=== PATIENT | male | born 1940 | race Caucasian/White ===

== ENCOUNTER 2017-07-28 02:27 | Inpatient (IN) | payer OTHER, MEDICARE ==
[~2017-07-28] VITALS: Ht 180.3 cm; Wt 105.7 kg
[~2017-07-28 02:27] MED LIST: CLARITIN10 M1 PO; CRESTOR40 M2 PO; LOVAZA1 G1 PO; MULTI-VITAMIN1 EACH; SAW PALMETTO160 M2; TYLENOL EXTRA500 M2 PO; VITAMIN D2000 UNIT PO
[2017-07-28] MEDS ORDERED: LOVAZA1 G1 PO (09:32)
--- NOTE | 2017-07-28 11:24 | Admission Core Measures ---
Acute Coronary Syndrome (CM) ACS Core Measures Acute Coronary Syndrome Diagnosis No Congestive Heart Failure (NEW) CHF Core Measures Congestive Heart Failure Diagnosis No Cerebrovascular Accident (NEW) CVA Core Measures CVA/TIA Diagnosis No Venous Thromboembolism VTE Core Libby (View Protocol) VTE Risk Factors Surgery No Mechanical VTE Prophylaxis d/t N/A MechProphylax Ordered No VTE Pharm Prophylaxis d/t NA PharmProphylax ordered Problem List As ranked by this Provider includes Assessment & Plan 1. Unilateral primary osteoarthritis, right knee HOME MEDS Home Med List Acetaminophen (Tylenol Extra Strength) 500 MG TABLET 2 TAB PO Q6 pain ( Reported) Aspirin (Ecotrin*) 81 MG TABLET.DR 1 TAB PO DAILY heart (Reported) Cholecalciferol (Vitamin D3) (Vitamin D) 2,000 UNIT CAPSULE 1 CAP PO DAILY supplement (Reported) Loratadine (Claritin) 10 MG TABLET 1 TAB PO DAILY anithistamine (Reported) Wayne-3 Acid Ethyl Esters (Lovaza) 1 GRAM CAPSULE 2 CAP PO BID bp (Reported) Wayne-3 Acid Ethyl Esters (Lovaza) 1 GRAM CAPSULE 1 CAP PO DAILY HEART HEALTH (Reported) Rosuvastatin Calcium (Crestor) 40 MG TABLET 1 TAB PO DAILY cholesterol ( Reported)
--- NOTE | 2017-07-28 11:35 | Surg Short-stay <48hrs Dis Sum ---
Visit Information Visit Dates Admission Date: 07/28/17 Discharge Date: 07/30/17 Surgical Short Stay DC Summary Admission Diagnosis: Primary osteoarthritis, right knee Final Diagnosis: Primary osteoarthritis, right knee s/p R TKR Procedure(s): Right total knee replacement Summary/Significant Findings: Patient was admitted to the hospital for an elective total joint replacement. Procedure was tolerated well and patient was transferred to a general surgical floor. Diet was advanced and tolerated. Physical therapy performed evaluation and treatment. At time of hospital discharge, vital signs were stable, neurovascular status was intact, and pain was controlled with the use of oral pain medications. Condition at Discharge: Stable Discharge Disposition: home health services Discharge instructions provided to patient/family: Yes Post discharge follow-up plan: Follow up with Dr. Álvarez in 6 weeks from date of surgery. Please call his office to schedule/confirm this appointment.
[2017-07-28] MEDS ORDERED: DILAUDID2 M1 PO (11:37)
[2017-07-28] MEDS ORDERED: ASPIRIN325 M2 PO (11:37)
[2017-07-28] MEDS ORDERED: OMEPRAZOLE20 M2 PO (11:37)
[2017-07-28] MEDS ORDERED: COLACE100 M1 PO (11:37)
[2017-07-28] MEDS ORDERED: MIRALAX17 G1 PO (11:37)
--- NOTE | 2017-07-28 11:40 | Patient Discharge Instructions ---
Discharge Instructions General Discharge Information You were seen/treated for: Primary osteoarthritis, right knee You had these procedures: Right total knee replacement Watch for these problems: Increasing pain despite the use of pain medication Increasing redness, warmth or swelling Drainage of any type from incision Inability to bear weight on operative leg Persistent nausea and vomiting Fever greater than 101.5 degrees Do not soak the wound: Yes No bath, but you may shower: Yes Other wound care: Please keep wound clean and dry. No ointments or lotions of any type on or near incision. Your dressing will be changed by your nurse on the second day after your surgery. Daily dry dressing changes are recommended each day thereafter. Do not soak your wound- no tub baths/swimming. You may shower 48hr after surgery. Special Instructions: Aspirin: You are taking this medication to help prevent blood clot formation. Please take with food to protect your stomach lining. Please take as directed. Constipation: Pain medication can cause constipation. It is recommended that you take Colace and Miralax each day. Discontinue this medication if you develop loose stool or diarrhea. If you wish to continue this medication, it is available over the counter. If you are unable to move your bowels or unable to pass gas and are developing bloating, nausea, or vomiting as a result, please contact your doctor. Diet Recommended Diet: Heart Healthy Activity Full Activity/No Limits: No Activity Limited to: Weight bear as tolerated Other activity limits: Use rolling walker as needed Acute Coronary Syndrome Inclusion Criteria At DC or during hospital stay patient has or had the following: ACS DIAGNOSIS No Discharge Core Measures Meds if any: Prescribed or Continued at Discharge Meds if any: NOT Prescribed or Continued at Discharge Congestive Heart Failure Inclusion Criteria At DC or during hospital stay patient has or had the following: CHF DIAGNOSIS No Discharge Core Measures Meds if any: Prescribed or Continued at Discharge Meds if any: NOT Prescribed or Continued at Discharge Cerebrovascular accident Inclusion Criteria At DC or during hospital stay patient has or had the following: CVA/TIA Diagnosis No Discharge Core Measures Meds if any: Prescribed or Continued at Discharge Meds if any: NOT Prescribed or Continued at Discharge Venous thromboembolism Inclusion Criteria VTE Diagnosis No VTE Type NONE VTE Confirmed by (Test) NONE Discharge Core Measures - Per Current guidelines, there needs to be overlap - treatment for the first 5 days of Warfarin therapy. - If discharged on Warfarin prior to 5 days of - overlap therapy, the patient will need to be - assessed for post discharge needs including - *Post discharge parental anticoagulation - *Warfarin and/or parental anticoagulation education - *Follow up date to check INR post discharge At least 5 days overlap therapy as Inpatient No Meds if any: Prescribed or Continued at Discharge Note: Overlap Therapy is Warfarin and Anticoagulant Meds if any: NOT Prescribed or Continued at Discharge
--- NOTE | 2017-07-28 15:07 | Operative Report ---
Operative/Inv Procedure Report Surgery Date: 07/28/17 Name of Procedure: Right total knee replacement Pre-Operative Diagnosis: Primary right knee DJD Post-Operative Diagnosis: Same Estimated Blood Loss: 50ml to 100ml Surgeon/Research And Development Chemist: Henri GODDARD,Rod Norman Anesthesia: block Operative/Procedure Note Note: Description of Procedure: The patient was taken to the operating room and positively identified. After induction of spinal anesthesia and administration of appropriate pre-operative antibiotics, the patient was positioned supine on the operating room table and all bony prominences were well padded. A well-padded pneumatic tourniquet was placed on the right upper thigh. After performing a surgical timeout, the right lower extremity was prepped and draped in the usual sterile fashion. After exsanguination with Esmarch the tourniquet was inflated to 250mm of mercury. A standard medial parapatellar approach was made to the knee. This was carried down through skin and subcutaneous tissue to the level of the fascia. Meticulous hemostasis was maintained with Bovie electrocautery. The extensor mechanism and patellar retinaculum were opened sharply and the patella was everted. The infrapatellar fat was resected in order to improve exposure. Osteophytes were trimmed from the patella and femoral condyles and the patella was re-everted and tucked laterally. A medial release was performed and the cruciate ligaments were resected. The tibia was then subluxed anteriorly. Utilizing the appropriate extra-medullary guide, the proximal tibia was trimmed perpendicular to the long axis of the tibial shaft. Attention was then turned to the femur. After opening the medullary canal, the distal femoral cut was made in 6 degrees of valgus utilizing the appropriate intra-medullary guide. The extension gap was checked and found to be appropriate. The femur was then sized and the remainder of the femoral cuts were made with a size 6 4-in-1 femoral cutting guide. The flexion gap was checked and found to be symmetric and appropriate. The knee was then trialed with a size 6 femoral component, a size 6 tibial component and a size 13 mm TS polyethylene insert. The patella was trimmed to accept an A 38 patella. This yielded excellent range of motion, stability and patellar tracking. All trial components were removed and the knee was copiously irrigated with sterile saline. All components were cemented into place with Deonna Simplex cement. All the components were of the Deonna Triathlon knee system of the above stated sizes. The knee was again irrigated after cementation. The extensor mechanism and patellar retinaculum were repaired using interrupted #1 vicryl suture. The skin was re-approximated with 2-0 vicryl and closed with azra. A sterile dressing was applied, the tourniquet was deflated, the patient was awakened and taken to the recovery room in satisfactory condition.
--- NOTE | 2017-07-28 16:06 | PN- Student ---
Ar Elizabeth 07/28/17 1604: Subjective Subjective: Tai is a 76yo M post op day 0 s/p R total knee arthroplasty r/t osteoarthritis. He states he has no pain at this time and expresses increased appetite. IVF inplace. PT does not have burr at this time. Denies flatus or BM. No questions or concerns at this time. Denies: H/A, vision changes, SOB, chest pain, abd pain, N/V/D, hematuria/dysuria , paresthesias or syncope. Objective Objective: GENERAL: Pt sitting upright in bed in NAD. A+Ox4, pleasant affect. O2 via nasal cannula in place. RESP: Good respiratory effort, CTAB. CARDIO: RRR, no MRG, S1/S1. ABD: Soft, NTND, tympanic, no bowel sounds audible. MUSC: Right leg in jackie wrap with ice pack on top. Dresing is clean dry and inplace. Pt able to move toes and ankles full ROM. Pedal pulses palpable bilaterally. Cap refill <2 seconds. NEURO: Sensation intact thoughout. Assessment/Plan Assessment: Tai is a 76yo M POD-0, s/p R total knee arthroscopy r/t OA. He is recovering well from his procedure and does not have any pain at this time, he states 'I want to eat and I want to go home.' Plan: Continue pain medications as ordered. Order regular diet. No weight bearing exercises Follow up with Dr. Wade outpatient. D/C this afternoon if patient remains stable. - D/C with pain medication Rx. Loren Urbina 07/28/17 9162: Assessment/Plan Plan: AGREE WITH ABOVE PA-S NOTE advance diet as tolerated pain medication as ordered PT eval. wbat asa bid - dvt ppx dressing change and removal of on-q POD#2 tamika-operative ancef x 2 doses f/u am labs d/c planning for home 2-3 days will d/w
[2017-07-28 20:00] VITALS: BP 150/64
[2017-07-28 23:02] VITALS: BP 128/66
[2017-07-29 01:54] VITALS: BP 112/64
[2017-07-29 06:20] VITALS: BP 136/64
--- NOTE | 2017-07-29 07:06 | PN- Student ---
Ar Elizabeth 07/29/17 0654: Subjective Subjective: Tai is a 76yo C male post op day 1 s/p R total knee arthroscopy r/t OA. Pt currently denies any pain but is complaining of generlized pruritus. He says he is 'itchy all over.' No rash visible, no respiratory changes. Patient has been tolerating regular diet and admits to + flatus, but denies BM. Patient states his knee feels 'great' and begins to flex and extend knee with full range of motion-- patient asked not to perform such great movements until physical therapy sees him this morning- pt understands and is complaint although he admits he has been doing this throughout the night, and says 'I've been putting the sheet under my foot, then I pull the sheet really high up so I can stretch out my knee.'- Again, patient was advised not to perform these manuevers without physical therapy consult. PT denies: H/A, vision changes, SOB, chest pain, N/V/D, paresthesias or syncope. Objective Objective: GENERAL: Pt sitting upright in bed comfortably, in NAD. A+Ox4, pleasant affect. PT hard of hearing. RESP: Good respiratory effort, CTAB. CARDIO: RRR, no M/R/G, S1,S2 audible. ABD: Soft, NTND, loud active bowel sounds audible in all 4 quadrants. MUSC: Right knee has dressing clean dry and intact, wrapped with LARISA bandage. Compression devices on lower legs bilaterally. Nontender/nonedematous. Pt able to move knee, ankle and toes without difficulty. Pedal pulses intact bilaterally , cap refill < 2 sec. NEURO: Sensation intact throughout. Assessment/Plan Assessment: Tai is a 76yo C male post op day 1 s/p R knee total arthroscopy r/t OA. Pt is in no acute distress but is complaining of pruritus, likely 2/2 opioid pain medications (only known drug allergy is to minocycline). Patient appears to be recovering well from the procedure and has no questions or concerns at this time. Plan: Continue regular diet. Continue pain medications as ordered. Continue aspirin 325mg for DVT prophylaxis. Order benadryl for pruritus --- if not effective: consider switching pain medications to torodol Physical therapy consult- encourage weight bearing/ambulation as tolerated. Luberti PA,Ben 07/29/17 0752: Resident Review Statement Resident Statement: examined this patient, amended to note Other Findings: Patient is comfortable, has no pain. Has some itching that he believes associated with anesthesia, relieved with Benadryl. Also some mild dyspepsia which is common for him, given Prilosec with near complete relief Exam: Well-developed well-nourished no apparent distress. HEENT: Atraumatic, extraocular motion intact Neck: Supple, no lymphadenopathy Respiratory: No respiratory distress Extremities: No edema RIGHT lower extremity dressing in place, Clean dry and intact Range of motion is 0-90. Compression wrap in place. ALPS in place Neurovascularly intact distally Bilateral calves are supple, nontender. Neuro: Alert and oriented x3 Psych: Mood affect normal, normal memory normal judgment. Skin: Warm and dry, no rash on exposed skin Assessment/plan: Postop day 1 status post right total knee arthroplasty Perioperative antibiotics. Pain medication as needed. Out of bed Physical therapy, weightbearing as tolerated DC IV fluids Regular diet Follow a.m. labs, hx ckd Aspirin for DVT prophylaxis ALPS for DVT prophylaxis Regular home meds Dressing change postop day 2 Continue on Q, DC tomorrow Monitor for further itching and rash
[2017-07-29 08:58] LABS: ABSOLUTE BASOPHIL COUNT 0 /CUMM (0.0-0.2); ABSOLUTE EOSINOPHIL COUNT 0 /CUMM (0.0-0.7); ABSOLUTE GRANULOCYTE CT 5.8 /CUMM (1.4-6.5); ABSOLUTE LYMPH COUNT 0.6 /CUMM (1.2-3.4); ABSOLUTE MONOCYTE COUNT 0.6 /CUMM (0.10-0.60); BASOPHIL % 0.4 % (0.0-2.0); EOSINOPHIL % 0.1 % (0-5); GRANULOCYTE % 81.9 % (42.2-75.2); HEMATOCRIT 29.7 % (42-52); MEAN CORPUSCULAR HGB 29.9 PG (27.0-31.0); MEAN CORPUSCULAR HGB CONC 33.7 G/DL (33.0-37.0); MEAN CORPUSCULAR VOLUME 88.6 FL (80.0-94.0); MEAN PLATELET VOLUME 8.2 FL (7.4-10.4); PLATELET COUNT 202 /CUMM (130-400); RBC DISTRIBUTION WIDTH 16.6 % (11.5-14.5); RED BLOOD CELL CT 3.36 /CUMM (4.70-6.10); WHITE BLOOD CELL COUNT 7.1 /CUMM (4.8-10.8)
[2017-07-29 09:43] VITALS: BP 122/70
[2017-07-29 14:00] VITALS: BP 152/70
[2017-07-29 19:00] VITALS: BP 140/54
[2017-07-29 23:02] VITALS: BP 162/60
[2017-07-30 02:00] VITALS: BP 138/60
[2017-07-30 06:15] VITALS: BP 146/58
--- NOTE | 2017-07-30 06:38 | PN- Student ---
Subjective Subjective: Tai is a 76yo C male POD2 s/p right total knee arthroplasy. Pt states he has no pain and is ready to go home today. Patient has been tolerating normal diet, admits to passing flatus but has not had a BM since the procedure. PT denies: H/A, vision changes, SOB, chest pain, NVD, paresthesias or syncope. Objective Objective: GENERAL: PT sleeping upright in bed comfortable upon entering the room. A+Ox4, in NAD. RESP: Good respiratory effort, CTAB. CARDIO: RRR, no MRG, S1 and S2 audible. ABD: Soft, NTND, loud normoactive bowel sounds audible throughout. MUSC: Right knee dressing clean dry and intact, wrapped with LARISA bandage. PT has full range of motion with toes/ankles. Pedal pulses +2 bilaterally. Lower extremities nontender, nonedematous. \NEURO: Sensation intact throughout. Results Results: Laboratory Tests 07/29/17 0754: Anion Gap 15, Estimated GFR 45 L, BUN/Creatinine Ratio 28.0 H, CBC w Diff NO MAN DIFF REQ, RBC 3.36 L, MCV 88.6, MCH 29.9, RDW 16.6 H, MPV 8.2, Gran % 81.9 H, Lymphocytes % 8.7 L, Monocytes % 8.9, Eosinophils % 0.1, Basophils % 0.4, Absolute Granulocytes 5.8, Absolute Lymphocytes 0.6 L, Absolute Monocytes 0.6, Absolute Eosinophils 0, Absolute Basophils 0, PUBS MCHC 33.7 Assessment/Plan Assessment: Tai is a 76yo C male recovering well post op day 2 s/p right total knee arthroplasty. Patient is in good spirits and says he has had no pain since the procedure. Pt has been working well with physical therapy and would like to be discharge home later today. No questions or concerns at this time. Plan: Continue regular diet. Physical therapy consult this am. Change dressing on right knee. Discharge this afternoon with PO pain medications. Follow up with Dr. Wade outpatient.
[2017-07-30] MEDS ORDERED: ASPIRIN EC81 M1 PO (10:34)
== END 2017-07-30 10:55 | disposition home health service (06) | DRG 470 ==
LOC: SDA 02:27 → 2NA 02:27 → SDA 07:00 → ENRESERV 13:58 → ENTRNSPT 14:50 → EDTRNSPTSTS 14:59 → EDTRNSPT 14:59 → 2NA 15:06 → CMPTRNSPT 15:14 → ENPENDDIS 07-30 09:02 → ENTRNSPT 07-30 10:43 → CMPTRNSPT 07-30 10:46 → 2NA 07-30 10:55
PROVIDERS: Physician Assistant Surgical
PROC: 0SRC0J9 Replacement of Right Knee Joint with Synthetic Substitute, Cemented, Open Approach (ICD-10-PCS; principal; 2017-07-28)
DX: M17.11 Unilateral primary osteoarthritis, right knee (principal); I12.9 Hypertensive chronic kidney disease with stage 1 through stage 4 chronic kidney disease, or unspecified chronic kidney disease; I25.10 Atherosclerotic heart disease of native coronary artery without angina pectoris; K21.9 Gastro-esophageal reflux disease without esophagitis; L29.9 Pruritus, unspecified; M25.761 Osteophyte, right knee; T40.2X5A Adverse effect of other opioids, initial encounter; Y92.239 Unspecified place in hospital as the place of occurrence of the external cause; Z95.5 Presence of coronary angioplasty implant and graft; N18.9 Chronic kidney disease, unspecified
CPT/HCPCS: 2NAP; 36415; 82436; 97110-GO; 97116-GO; 97161-GP; 97530-GO; C1713; J0690; J1200; J2550; J2795; J7042